=== PATIENT | female | born 1950 | race Caucasian/White ===

== ENCOUNTER 2018-12-18 22:23 | Emergency (ER) | payer MEDICARE, BC ==
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
[2018-12-18] MEDS: Ibuprofen 600 MG Tab PO ONE (23:30)
[2018-12-18] MEDS: Acetaminophen/oxyCODONE 325-5 MG Tab PO ONE (23:30)
[2018-12-18] MEDS: Ondansetron 4 MG Tab.DIS PO ONE (23:31)
--- NOTE | 2018-12-19 07:27 | CR ---
Left ankle: Four views of the left ankle were obtained. Comparison: No previous ankle study. Soft tissue swelling is identified. Ankle mortise is symmetric. Small plantar spur is seen. No acute fracture, dislocation or other bony abnormality is seen. Impression: 1. Incidental findings. No acute bony abnormality is identified on left ankle exam. Diagnostic code #2
--- NOTE | 2018-12-19 07:35 | CR ---
Left tibia and fibula: AP and lateral views of the left tibia and fibula were obtained. Comparison: No previous study. Small plantar spur is seen. Subcutaneous edema is noted. Bony structures are osteopenic. Mild medial joint space narrowing is seen within the knee. No fracture or other abnormality is appreciated. Impression: 1. Incidental findings. Nothing acute is appreciated within the left tibia or fibula. Diagnostic code #2
== END 2018-12-19 00:26 | disposition home or self-care (01) ==
LOC: JD.ED 22:23
DX: S80.12XA Contusion of left lower leg, initial encounter (principal); I10 Essential (primary) hypertension; W18.00XA Striking against unspecified object with subsequent fall, initial encounter
CPT/HCPCS: 73590; 73610; 99283; A9270